=== PATIENT | male | born 1980 | race Caucasian/White ===

== ENCOUNTER 2018-06-02 22:48 | Inpatient (IN) | payer MEDICAID, OTHER ==
[~2018-06-02] VITALS: Ht 188 cm; Wt 119.4 kg
[2018-06-02] MEDS ORDERED: ADENOSINE 6 MG/2 ML (ADENOCARD) VIAL IV ONE ×5 (22:58→23:00)
[2018-06-02] MEDS ORDERED: NS IV 1000 ML 1,000 ML ONE (22:58)
[2018-06-02] MEDS ORDERED: NS IV 1000 ML 1,000 ML IV ONE ×2 (22:59→23:31)
[2018-06-02] MEDS ORDERED: LORazepam INJ 2 MG/ML (ATIVAN) VIAL ONE (22:59)
[2018-06-02] MEDS ORDERED: LORazepam INJ 2 MG/ML (ATIVAN) VIAL IVP ONE ×2 (23:00)
[2018-06-02 23:19] LABS: BASOPHILS % (AUTO) 0 % (0-10); EOSINOPHILS % (AUTO) 0 % (0-10); HEMATOCRIT 48 % (40-54); HEMOGLOBIN 16.7 G/DL (13.3-17.7); LYMPHOCYTES # (AUTO) 2.2 X 10^3 (1.0-4.0); LYMPHOCYTES % (AUTO) 15 % (12-44); MEAN CORPUSCULAR HEMOGLOBIN 29 PG (25-34); MEAN CORPUSCULAR HGB CONC 35 G/DL (32-36); MEAN CORPUSCULAR VOLUME 84 FL (80-99); MEAN PLATELET VOLUME 11.7 FL (7.4-10.4); MONOCYTES % (AUTO) 7 % (0-12); NEUTROPHILS # (AUTO) 11.4 X 10^3 (1.8-7.8); NEUTROPHILS % (AUTO) 78 % (42-75); PLATELET COUNT 283 10^3/uL (130-400); RED BLOOD COUNT 5.78 10^6/uL (4.35-5.85); RED CELL DISTRIBUTION WIDTH 12.7 % (10.0-14.5); WHITE BLOOD COUNT 14.6 10^3/uL (4.3-11.0)
[2018-06-02] MEDS ORDERED: WATER (STERILE) FOR INJECTION 20 ML ONE (23:23)
[2018-06-02] MEDS ORDERED: ZIPRASIDONE 20 MG INJ (GEODON) VIAL IM ONE (23:30)
[2018-06-02] MEDS ORDERED: DILTIAZEM 25 MG/5 ML INJ (CARDIZEM) VIAL IVP ONE (23:30)
[2018-06-02] MEDS ORDERED: DILTIAZEM INJECTION 125 MG in D5W 100 ML IVPB 100 ML IV SCH (23:30)
[2018-06-02 23:39] LABS: ALANINE AMINOTRANSFERASE 92 U/L (0-55); ALBUMIN 4.4 GM/DL (3.2-4.5); ALKALINE PHOSPHATASE 84 U/L (40-136); BILIRUBIN,TOTAL 0.3 MG/DL (0.1-1.0); BUN/CREATININE RATIO 10; CALCIUM 10.2 MG/DL (8.5-10.1); CARBON DIOXIDE 15 MMOL/L (21-32); CHLORIDE 111 MMOL/L (98-107); GFR ESTIMATED > 60; GLUCOSE 226 MG/DL (70-105); MAGNESIUM 2.4 MG/DL (1.8-2.4); POTASSIUM 3.8 MMOL/L (3.6-5.0); SALICYLATE < 5.0 MG/DL (5.0-20.0); SODIUM 142 MMOL/L (135-145)
[2018-06-02 23:45] LABS: ACETAMINOPHEN < 10 UG/ML (10-30); LYMPHOCYTES % (MANUAL) 16 %; MONOCYTES % (MANUAL) 4 %; NEUTROPHILS % (MANUAL) 80 %; RBC MORPH NORMAL
--- OUTSIDE RECORDS SUMMARY | 2018-06-02 23:49 | XMS REPORT | Clinical Summary ---
Author Author [facility] Organization [facility] Address Unknown Phone Unavailable Care Team Providers Care Technical Photographer Name Role Phone Unassigned, None PP Unavailable Allergies No Known Allergies Current Medications Prescription Sig. Disp. Refills Start End Date Status Date FLUoxetine (PROZAC) 40 MG Take 1 capsule (40 mg 30 capsule 0 05/24/20 Active capsuleIndications: total) by mouth daily. 18 Depression Indications: Depression traZODone (DESYREL) 100 Take 1 tablet (100 mg 30 tablet 0 05/23/20 Active MG tabletIndications: total) by mouth at 18 Insomnia bedtime. Indications: Trouble Sleeping lisinopril Take 1 tablet (20 mg 30 tablet 0 05/24/20 Active (PRINIVIL,ZESTRIL) 20 MG total) by mouth daily. 18 tabletIndications: Indications: High Blood Hypertension Pressure Disorder QUEtiapine (SEROQUEL) 50 Take 1 tablet (50 mg 30 tablet 0 05/23/20 Active MG tabletIndications: total) by mouth 2 (two) 18 Schizoaffective disorder times daily as needed (anxiety). Indications: Schizoaffective disorder lisinopril Take 40 mg by mouth 05/23/20 Discontin (PRINIVIL,ZESTRIL) 40 MG daily. 18 ued tablet Mirtazapine (REMERON PO) Take 45 mg by mouth at 05/23/20 Discontin bedtime. 18 ued escitalopram (LEXAPRO) 20 Take 20 mg by mouth 05/23/20 Discontin MG tablet daily. 18 ued haloperidol (HALDOL) 5 MG Take 2 mg by mouth daily. 05/23/20 Discontin tablet 18 ued Active Problems Problem Noted Date Depressive disorder 05/17/2018 Suicide ideation 05/17/2018 Social History Tobacco Use Types Packs/Day Years Used Date Current Every Day Smoker Cigarettes 0.5 Smokeless Tobacco: Never Used Tobacco Cessation: Ready to Quit: No; Counseling Given: No Alcohol Use Drinks/Week oz/Week Comments No last drank 2-3 weeks ago, pints of vodka Sex Assigned at Date Recorded Not on file Last Filed Vital Signs Vital Sign Reading Time Taken Blood Pressure 136/83 05/23/2018 8:31 AM CDT Pulse 104 05/23/2018 8:31 AM CDT Temperature 36.9 C (98.4 F) 05/23/2018 8:30 AM CDT Respiratory Rate 18 05/23/2018 8:30 AM CDT Oxygen Saturation 99% 05/23/2018 8:30 AM CDT Inhaled Oxygen - - Concentration Weight 122.5 kg (270 lb) 05/17/2018 11:10 AM CDT Height 188 cm (6' 2") 05/17/2018 11:10 AM CDT Body Mass Index 34.67 05/17/2018 11:10 AM CDT Plan of Treatment Health Maintenance Due Date Last Done Comments Varicella Vaccines (1 of 1992 2 - 2-dose adolescent series) DTaP,Tdap,and Td Vaccines 1998 (1 - Tdap) Influenza Vaccine (#1) 2018 Implants Implanted Type Area Towel Hemmer Device Expiration Model / Identifier Date Serial / Lot Mesh Mesh Results * TSH (Reflex Free T4 if abnormal) (05/18/2018 11:07 AM) TSH 0.680 0.400 - 4.000 uIU/mL [facility] Specimen Blood Performing Organization Address City/State/Zipcode Phone Number [facility] [address] [place] [address] from Last 3 Months
[2018-06-03] VITALS (16 sets, daily range): BP systolic 110–154; BP diastolic 76–107
[2018-06-03] LABS: TSH (THYROID ANALYZER) 2.52 UIU/ML (0.35-4.94)
--- NOTE | 2018-06-03 01:03 | ED Psychosocial ---
General Chief Complaint: Substance Abuse Stated Complaint: SUBSTANCE ABUSE Nursing Triage Note: Patient advises he used IV meth tonight and has not been feeling well since. Source: patient, EMS Exam Limitations: no limitations History of Present Illness Date Seen by Provider: Jun 02, 2018 Time Seen by Provider: 22:58 Initial Comments This 38-year-old man presents to the emergency room via EMS at the request of [place] police because of acute psychosis. He is noted to be tachycardic with a heart rate around 140 by EMS. He is rather agitated and required some verbal calming by EMS. EMS had a call to this patient earlier in the evening but he declined transfer. This time he is being transferred at police request. Patient appears to be acutely psychotic. He is paranoid that the government officials or other authorities are trying to gain access to his life through his X-box. In fact, he presents to the ER clutching his X-box controller. He admits to using methamphetamines. He also smells of alcohol. When the patient was placed on the monitor he was found to have a heart rate in the 170s. Rhythm appeared to be SVT on the monitor. Patient was diaphoretic, tachycardic and anxious. Allergies and Home Medications Allergies Coded Allergies: NKANo Known Allergies (Verified Allergy, Unknown, 05/01/06) No Known Drug Allergies (Unverified , 06/03/18) Patient Home Medication List Home Medication List Reviewed: Yes Constitutional: see HPI EENTM: no symptoms reported Respiratory: no symptoms reported Cardiovascular: see HPI Gastrointestinal: no symptoms reported Genitourinary: no symptoms reported Musculoskeletal: no symptoms reported Skin: no symptoms reported Psychiatric/Neurological: See HPI Past Aongqlc-Ernpvm-Ozkoqh Hx Patient Social History Alcohol Use: Occasionally Uses Recreational Drug Use: Yes Drug of Choice: meth Smoking Status: Current Everyday Smoker Type Used: Cigarettes 2nd Hand Smoke Exposure: No Recent Foreign Travel: No Contact w/Someone Who Travel: No Recent Infectious Disease Expo: No Recent Hopitalizations: Yes (DEREK FOR DETOX 2 MONTHS AGO, SEVERAL VISITS IN PAST 2 YEARS, TO ) Physical Abuse: No Sexual Abuse: No Past Medical History Surgeries: Yes (wisdom teeth) Respiratory: No Cardiac: Yes Hypertension Neurological: Yes Stroke Reproductive Disorders: No Genitourinary: No Gastrointestinal: No Musculoskeletal: No Endocrine: No HEENT: No Cancer: No Psychosocial: Yes (polysubstance abuse) Nursing Suicide Risk Score: 0 Integumentary: No Blood Disorders: No Physical Exam Vital Signs - First Documented 06/02/18 06/03/18 23:52 01:20 Temp 99.0 Pulse 170 Resp 24 B/P (MAP) 156/101 (119) Pulse Ox 98 O2 Delivery Room Air Capillary Refill : Less Than 3 Seconds Height, Weight, BMI Height: 6'1.00" Weight: 325lbs. oz. 147.005444zp; BMI Method:Estimated General Appearance: WD/WN, moderate distress HEENT: PERRL/EOMI, normal ENT inspection, other (mucous membranes dry) Neck: normal inspection Respiratory: lungs clear, normal breath sounds, no respiratory distress, no accessory muscle use Cardiovascular: no edema, no murmur, tachycardia Gastrointestinal: normal bowel sounds, non tender, soft Extremities: normal inspection, no pedal edema Neurologic/Psychiatric: paper inspector II-XII nml as tested, no motor/sensory deficits, alert, other (somewhat disoriented, agitated, paranoid delusions) Appearance/Memory: disheveled Behavior/Eye Contact: cooperative, good eye contact, increased rate of speech Thoughts/Hallucinations: delusions, flight of ideas, paranoid Skin: normal color, diaphoresis Progress/Results/Core Measures Results/Orders Lab Results Laboratory Tests Test 06/02/18 23:10 Range/Units White Blood Count 14.6 H 4.3-11.0 10^3/uL Red Blood Count 5.78 4.35-5.85 10^6/uL Hemoglobin 16.7 13.3-17.7 G/DL Hematocrit 48 40-54 % Mean Corpuscular Volume 84 80-99 FL Mean Corpuscular Hemoglobin 29 25-34 PG Mean Corpuscular Hemoglobin Concent 35 32-36 G/DL Red Cell Distribution Width 12.7 10.0-14.5 % Platelet Count 283 130-400 10^3/uL Mean Platelet Volume 11.7 H 7.4-10.4 FL Neutrophils (%) (Auto) 78 H 42-75 % Lymphocytes (%) (Auto) 15 12-44 % Monocytes (%) (Auto) 7 0-12 % Eosinophils (%) (Auto) 0 0-10 % Basophils (%) (Auto) 0 0-10 % Neutrophils # (Auto) 11.4 H 1.8-7.8 X 10^3 Lymphocytes # (Auto) 2.2 1.0-4.0 X 10^3 Monocytes # (Auto) 1.0 0.0-1.0 X 10^3 Eosinophils # (Auto) 0.0 0.0-0.3 10^3/uL Basophils # (Auto) 0.0 0.0-0.1 10^3/uL Neutrophils % (Manual) 80 % Lymphocytes % (Manual) 16 % Monocytes % (Manual) 4 % Blood Morphology Comment NORMAL Sodium Level 142 135-145 MMOL/L Potassium Level 3.8 3.6-5.0 MMOL/L Chloride Level 111 H 98-107 MMOL/L Carbon Dioxide Level 15 L 21-32 MMOL/L Anion Gap 16 H 5-14 MMOL/L Blood Urea Nitrogen 10 7-18 MG/DL Creatinine 1.00 0.60-1.30 MG/DL Estimat Glomerular Filtration Rate > 60 BUN/Creatinine Ratio 10 Glucose Level 226 H 70-105 MG/DL Calcium Level 10.2 H 8.5-10.1 MG/DL Magnesium Level 2.4 1.8-2.4 MG/DL Total Bilirubin 0.3 0.1-1.0 MG/DL Aspartate Amino Transf (AST/SGOT) 70 H 5-34 U/L Alanine Aminotransferase (ALT/SGPT) 92 H 0-55 U/L Alkaline Phosphatase 84 40-136 U/L Troponin I < 0.30 <0.30 NG/ML Total Protein 8.0 6.4-8.2 GM/DL Albumin 4.4 3.2-4.5 GM/DL TSH Sargent Testing 2.52 0.35-4.94 UIU/ML Salicylates Level < 5.0 L 5.0-20.0 MG/DL Acetaminophen Level < 10 L 10-30 UG/ML Serum Alcohol 202 H <10 MG/DL My Orders Orders - THOMAS PAPPAS MD Lorazepam Injection (Ativan Injection) (06/02/18 23:00) Adenosine Injection (Adenocard Injection (06/02/18 23:00) Adenosine Injection (Adenocard Injection (06/02/18 23:00) Adenosine Injection (Adenocard Injection (06/02/18 23:00) Adenosine Injection (Adenocard Injection (06/02/18 23:00) Lorazepam Injection (Ativan Injection) (06/02/18 23:00) Acetaminophen (06/02/18 22:59) Alcohol (06/02/18 22:59) Cbc With Automated Diff (06/02/18 22:59) Comprehensive Metabolic Panel (06/02/18 22:59) Drug Screen Stat (Urine) (06/02/18 22:59) Magnesium (06/02/18 22:59) Salicylate (06/02/18 22:59) Thyroid Analyzer (06/02/18 22:59) Troponin I (06/02/18 22:59) Ua Culture If Indicated (06/02/18 22:59) Saline Lock/Iv-Start (06/02/18 22:59) Saline Lock/Iv-Start (06/02/18 22:59) Ns Iv 1000 Ml (Sodium Chloride 0.9%) (06/02/18 22:59) Ns Iv 1000 Ml (Sodium Chloride 0.9%) (06/02/18 22:58) Adenosine Injection (Adenocard Injection (06/02/18 22:58) Lorazepam Injection (Ativan Injection) (06/02/18 22:59) Ziprasidone Injection (Geodon Injection) (06/02/18 23:30) D5w 100 Ml Ivpb (De... W/Diltiazem Injec (06/02/18 23:30) Diltiazem Injection (Cardizem Injection) (06/02/18 23:30) Manual Differential (06/02/18 23:10) Water (Sterile) For Injection (Sterile W (06/02/18 23:23) Saline Lock/Iv-Start (06/02/18 23:31) Ns Iv 1000 Ml (Sodium Chloride 0.9%) (06/02/18 23:31) Chest 1 View, Ap/Pa Only (06/03/18 00:00) Ekg Tracing (06/03/18 00:10) Ekg Tracing (06/03/18 01:40) Medications Given in ED Current Medications Medications Dose Ordered Sig/Travis Route Start Time Stop Time Status Last Admin Dose Admin Adenosine 6 mg ONCE ONCE IV 06/02/18 23:00 06/02/18 23:02 DC 06/02/18 23:40 6 MG Adenosine 6 mg STK-MED ONCE IV 06/02/18 22:58 06/02/18 23:00 DC 06/02/18 23:43 6 MG Adenosine 12 mg ONCE ONCE IV 06/02/18 23:00 06/02/18 23:02 DC 06/02/18 23:40 12 MG Diltiazem HCl 10 mg ONCE ONCE IVP 06/02/18 23:30 06/02/18 23:31 DC 06/02/18 23:39 10 MG Lorazepam 2 mg ONCE ONCE IVP 06/02/18 23:00 06/02/18 23:02 DC 06/02/18 23:40 2 MG Sodium Chloride 1,000 ml @ 0 mls/hr Q0M ONCE IV 06/02/18 22:59 06/02/18 23:02 DC 06/02/18 23:41 0 MLS/HR Sodium Chloride 1,000 ml @ 0 mls/hr Q0M ONCE IV 06/02/18 23:31 06/02/18 23:32 DC 06/02/18 23:39 0 MLS/HR Sterile Water 20 ml @ ud STK-MED ONCE .ROUTE 06/02/18 23:23 06/02/18 23:26 DC 06/02/18 23:40 20 MLS/HR Ziprasidone 10 mg ONCE ONCE IM 06/02/18 23:30 06/02/18 23:31 DC 06/02/18 23:40 10 MG Vital Signs/I&O 06/02/18 06/03/18 06/03/18 23:52 01:20 01:23 Temp 99.0 Pulse 170 122 121 Resp 24 10 B/P (MAP) 156/101 (119) 124/79 (94) Pulse Ox 98 95 O2 Delivery Room Air Room Air Blood Pressure Mean: 119 Progress Progress Note : Progress Note Patient was rather agitated which was concerning to ER staff. [place] PD was scalded to be on standby. We were able to establish IV access. Ativan 2 mg was administered. EKG was suggestive of SVT, although in the automated read of the EKG reported sinus tachycardia. Adenosine 6 mg was given resulting in a brief pause and conversion to sinus rhythm in the 60s. This lasted for several seconds but promptly returned to a narrow complex tachycardia. A 12 mg dose of adenosine was then given which had no effect on the rhythm. Blood pressure remained hypertensive to normal. Patient remained alert. Cardizem bolus and drip was chosen as the next line of therapy. Heart rate gradually decreased to the 130s and 140s. As rate slowed an apparent sinus tachycardia emerged. Patient received 2 L of IV normal saline while in the ER. Patient also received Geodon 10 mg IM which helped calm his psychosis. EKG #1: EKG Time: 22:59 Rate: 162 Rhythm: SVT Intervals: Normal Comment Narrow complex tachycardia possibly sinus tachycardia but likely SVT. No acute ST elevation or depression. Prolonged QTC of 539. EKG #2: EKG Time: 00:18 Rate: 131 Rhythm: S.Tach Comment Sinus tachycardia with no ST elevation or depression. Prolonged QTC has now corrected. Diagnostic Imaging Diagonstic Imaging: Xray Plain Films/CT/US/NM/MRI: chest Comments Chest x-ray viewed by me. Report not yet available. No acute abnormalities appreciated. Departure Communication (Admissions) Time/Spoke to Admitting Phy: 00:40 Dr. Camacho Time/Spoke to Consulting Phy: 00:45 Dr. Bustamante Impression Primary Impression: Tachycardia Additional Impressions: Acute psychosis Methamphetamine abuse Alcohol intoxication Qualified Codes: F10.921 - Alcohol use, unspecified with intoxication delirium Leukocytosis Qualified Codes: D72.829 - Elevated white blood cell count, unspecified Disposition: ADMITTED INPATIENT Condition: Improved Admissions Decision to Admit Reason: Admit from ER (General) Decision to Admit/Date: Jun 02, 2018 Time/Decision to Admit Time: 23:00 Departure-Patient Inst. Referrals: ZA CAMACHO DO (PCP) Primary Care Physician Patient Instructions: ALCOHOL AND SUBSTANCE ABUSE THOMAS PAPPAS MD Jun 03, 2018 01:02
--- OUTSIDE RECORDS SUMMARY | 2018-06-03 01:06 | XMS REPORT | Clinical Summary ---
Author Author [facility] Organization [facility] Address Unknown Phone Unavailable Care Team Providers Care Channel Marketing Coordinator Name Role Phone Unassigned, None PP Unavailable [...] Vaccine (#1) 2018 Implants Implanted Type Area Sewer Separation Designer Device Expiration Model / Identifier Date Serial / Lot Mesh Mesh Results * TSH (Reflex Free T4 if abnormal) (05/18/2018 11:07 AM) TSH 0.680 0.400 - 4.000 uIU/mL [facility] Specimen Blood Performing Organization Address City/State/Zipcode Phone Number [facility] [address] [place] [address] from Last 3 Months
[2018-06-03] MEDS ORDERED: LORazepam INJ 2 MG/ML (ATIVAN) VIAL ONE (01:48)
[2018-06-03] MEDS ORDERED: NICOTINE 21 MG (NICODERM) PATCH ONE (02:18)
[2018-06-03] MEDS: NS IV 1000 ML 1,000 ML IV SCH ×2 (02:26→07:46)
[2018-06-03] MEDS ORDERED: LORazepam INJ 2 MG/ML (ATIVAN) VIAL IV PRN (02:30)
[2018-06-03] MEDS ORDERED: ONDANSETRON 4 MG/2 ML (SDV) Z0FRAN IV PRN (02:30)
[2018-06-03] MEDS ORDERED: ZIPRASIDONE 20 MG INJ (GEODON) VIAL IM PRN (02:30)
[2018-06-03 03:16] LABS: BASOPHILS % (AUTO) 0 % (0-10); EOSINOPHILS % (AUTO) 0 % (0-10); HEMATOCRIT 41 % (40-54); HEMOGLOBIN 14.5 G/DL (13.3-17.7); LYMPHOCYTES # (AUTO) 2.4 X 10^3 (1.0-4.0); LYMPHOCYTES % (AUTO) 19 % (12-44); MEAN CORPUSCULAR HEMOGLOBIN 30 PG (25-34); MEAN CORPUSCULAR HGB CONC 35 G/DL (32-36); MEAN CORPUSCULAR VOLUME 85 FL (80-99); MEAN PLATELET VOLUME 11.6 FL (7.4-10.4); MONOCYTES % (AUTO) 8 % (0-12); NEUTROPHILS # (AUTO) 9.1 X 10^3 (1.8-7.8); NEUTROPHILS % (AUTO) 72 % (42-75); PLATELET COUNT 214 10^3/uL (130-400); RED BLOOD COUNT 4.85 10^6/uL (4.35-5.85); RED CELL DISTRIBUTION WIDTH 12.4 % (10.0-14.5); WHITE BLOOD COUNT 12.6 10^3/uL (4.3-11.0)
[2018-06-03 03:31] LABS: BUN/CREATININE RATIO 11; CALCIUM 8.5 MG/DL (8.5-10.1); CARBON DIOXIDE 16 MMOL/L (21-32); CHLORIDE 115 MMOL/L (98-107); CREATININE SERUM 0.73 MG/DL (0.60-1.30); GFR ESTIMATED > 60; GLUCOSE 113 MG/DL (70-105); MAGNESIUM 1.8 MG/DL (1.8-2.4); PHOSPHORUS 3.2 MG/DL (2.3-4.7); POTASSIUM 3.7 MMOL/L (3.6-5.0); SODIUM 144 MMOL/L (135-145)
[2018-06-03 04:30] LABS: BILIRUBIN,URINE NEGATIVE (NEGATIVE); CLARITY,URINE CLEAR; COLOR,URINE YELLOW; GLUCOSE, URINE (UA) NEGATIVE (NEGATIVE); KETONES,URINE NEGATIVE (NEGATIVE); LEUKOCYTE ESTERASE ,URINE NEGATIVE (NEGATIVE); NITRITE,URINE NEGATIVE (NEGATIVE); PH,URINE 6.5 (5-9); PROTEIN,URINE NEGATIVE (NEGATIVE); UROBILINOGEN,URINE NORMAL (NORMAL)
[2018-06-03 04:40] LABS: BACTERIA,URINE NEGATIVE /HPF
[2018-06-03 05:07] LABS: AMPHETAMINE SCREEN, URINE POSITIVE (NEGATIVE); BARBITURATE SCREEN URINE NEGATIVE (NEGATIVE); BENZODIAZEPINES SCREEN URINE POSITIVE (NEGATIVE); CANNABINOID SCREEN, URINE POSITIVE (NEGATIVE); COCAINE SCREEN URINE NEGATIVE (NEGATIVE); METHADONE STAT NEGATIVE (NEGATIVE); METHAMPHETAMINE SCREEN URINE S POSITIVE (NEGATIVE); OPIATE SCREEN URINE NEGATIVE (NEGATIVE); OXYCODONE STAT NEGATIVE (NEGATIVE); PROPOXYPHENE STAT NEGATIVE (NEGATIVE); TRICYCLIC ANTIDEPRESSANTS SCRE NEGATIVE (NEGATIVE)
[2018-06-03] MEDS ORDERED: MAGNESIUM 1 GM/100 ML IVPB 100 ML IV SCH (06:00)
[2018-06-03] MEDS ORDERED: POTASSIUM CL 10MEQ/50ML IVPB 50 ML IV SCH (06:00)
[2018-06-03] MEDS ORDERED: KCL 20 MEQ TAB (K-DUR) PO SCH (06:00)
--- NOTE | 2018-06-03 07:10 | Diagnostic Imaging Report ---
EXAMINATION: Chest radiograph, portable AP view. DATE: June 03, 2018 at 0008 hours. INDICATION: 38-year-old male, chest pain. COMPARISON: None. FINDINGS: Heart size and mediastinal contours are unremarkable. There is no identified pneumothorax. There is no large pleural effusion. There is no identified focal airspace consolidation. There is widening of the right acromioclavicular joint which potentially could relate to sequela of acromioclavicular joint separation injury. IMPRESSION: 1. No identified acute cardiopulmonary abnormality. 2. Widening of the right acromioclavicular joint which may potentially reflect sequela of right acromioclavicular joint separation injury. Dictated by: Dictated on workstation # [id number]
[2018-06-03] MEDS ORDERED: D5W 100 ML IVPB 100 ML IV ONE (07:33)
[2018-06-03] MEDS ORDERED: DILTIAZEM 125 MG/25 ML IV (CARDIZEM) IV ONE (07:35)
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
[2018-06-03] MEDS ORDERED: NICOTINE 21 MG (NICODERM) PATCH TD SCH (09:00)
[2018-06-03] MEDS ORDERED: IBUP-30 PO (09:15)
[2018-06-03] MEDS ORDERED: TRAZ-190 PO (09:15)
[2018-06-03] MEDS ORDERED: FLUO40CA12 PO (09:15)
[2018-06-03] MEDS ORDERED: LISI-552 PO (09:15)
[2018-06-03] MEDS ORDERED: QUET50TA PO (09:15)
--- NOTE | 2018-06-03 09:49 | Consultation-Cardiology ---
HPI-Cardiology Cardiology Consultation: Date of Consultation 06/03/18 Date of Admission Attending Physician Kendrick Hankins DO Admitting Physician Kendrick Hankins DO Consulting Physician Artur BUSTAMANTE MD HPI: Time Seen by Provider: 09:50 Chief Complaint: SVT. This is a 38-year-old gentleman who presented to the ER with acute psychosis. He was noted to be tachycardic with elevated heart rate. He was found to be in SVT. He used methamphetamines and was intoxicated. He was acutely psychotic. Review of Systems-Cardiology Review of Systems Constitutional: As described under HPI; No As described under HPI, No no symptoms reported, No chills, No fever, No lightheadedness Eyes: No As described under HPI, No no symptoms reported, No blindness, No blurred vision, No contact lenses, No drainage, No decreased acuity, No foreign body sensation, No pain, No vision change Ears/Nose/Throat: No As described under HPI, No no symptoms reported, No chronic hearing loss, No ear discharge, No ear pain, No nasal drainage, No ulcerations Respiratory: No no symptoms reported; As described under HPI; No As described under HPI, No cough, No orthopnea, No shortness of breath, No SOB with excertion Cardiovascular: No no symptoms reported; As described under HPI; No As described under HPI, No chest pain, No edema, No irregular heart rate, No lightheadedness; palpitations Gastrointestinal: No no symptoms reported, No As described under HPI, No abdomen distended, No abdominal pain, No blood streaked bowels, No constipation , No diarrhea, No nausea, No vomiting, No stool coloration changes Genitourinary: No As described under HPI, No burning, No dysuria, No discharge , No frequency, No flank pain, No hematuria, No urgency Skin: No rash, No skin related problems, No ulcerations Psychiatric/Neurological: As described under HPI; No anxiety, No depression, No seizure, No focal weakness, No syncope Hematologic: No bleeding abnormalities [id number] Hx Patient Social History Employed/Student: unemployed Alcohol Use: Occasionally Uses Recreational Drug Use: Yes Drug of Choice: IV meth Smoking Status: Current Everyday Smoker Type Used: Cigarettes 2nd Hand Smoke Exposure: No Recent Foreign Travel: No Recent Infectious Disease Expo: No Physical Abuse Screen: No (POSSIBLY) Sexual Abuse: No Past Medical History PMH As described under Assessment. Allergies and Home Medications Allergies Coded Allergies: NKANo Known Allergies (Verified Allergy, Unknown, 05/01/06) No Known Drug Allergies (Unverified , 06/03/18) Home Medications Fluoxetine HCl 40 Mg Capsule, 40 MG PO DAILY, (Reported) Ibuprofen 200 Mg Tablet, 800 MG PO TID PRN for PAIN-MILD, (Reported) Lisinopril 20 Mg Tablet, 20 MG PO DAILY, (Reported) Quetiapine Fumarate 50 Mg Tablet, 50 MG PO HS, (Reported) Trazodone HCl 100 Mg Tablet, 100 MG PO HS, (Reported) Patient Home Medication List Home Medication List Reviewed: Yes Physical Exam-Cardiology Physical Exam Vital Signs/I&O 06/03/18 06/03/18 06/03/18 06/03/18 11:44 11:45 12:00 13:00 Temp 98.4 Pulse 79 81 Resp 8 B/P (MAP) 149/101 (117) Pulse Ox 99 99 O2 Delivery Room Air Room Air Room Air 06/03/18 06/03/18 06/03/18 06/03/18 13:00 14:00 15:00 16:15 Pulse 76 74 75 75 Resp 20 15 14 14 B/P (MAP) 154/107 (123) 138/93 (108) 147/107 (120) 147/107 Pulse Ox 100 100 96 96 O2 Delivery Room Air Room Air Room Air Room Air Capillary Refill : Less Than 3 Seconds Constitutional: appears stated age; No apparent distress; well-developed, well- nourished HEENT: PERRL; No discharge; hearing is well preserved, oral hygience is good; No ulceration, No xanthelasmas are seen Neck: No carotid bruit; carotid pulses are 2 + bilaterally Respiratory: chest is bilaterally symmetric, lungs clear to auscultation Cardiovascular: regular rate-rhythm, S1 and S2 Gastrointestinal: No tender, No soft, No round, No distended, No pulsatile mass , No organomegaly, No guarding, No rebound, No tenderness, No hernia, No mass, No audible bowel sounds, No abnormal bowel sounds, No abdominal bruits, No spleenomegaly, No other Rectal: deferred Extremities: No normal range of motion, No non-tender, No normal inspection, No pedal edema, No calf tenderness, No normal capillary refill, No pelvis stable , No calf tenderness, No inflammation, No pedal edema, No slow capillary refill , No swelling, No other, No abrasion, No clubbing, No cyanosis, No ecchymosis, No laceration, No no lower extremity edema bilateral, No significant edema, No tenderness, No wound Neurologic/Psychiatric: no motor/sensory deficits, alert, normal mood/affect, oriented x 3, power is 5/5 both on sides Skin: No normal color, No warm/dry, No cyanosis, No cool, No diaphoresis, No damp, No ecchymosis, No jaundice, No mottled, No pallor, No rash, No tattoos/ piercings, No ulcerations, No rash on exposed areas, No ulcerations on exposed areas, No other Data Review Labs Laboratory Tests 06/03/18 03:00: White Blood Count 12.6H, Red Blood Count 4.85, Hemoglobin 14.5, Hematocrit 41, Mean Corpuscular Volume 85, Mean Corpuscular Hemoglobin 30, Mean Corpuscular Hemoglobin Concent 35, Red Cell Distribution Width 12.4, Platelet Count 214, Mean Platelet Volume 11.6H, Neutrophils (%) (Auto) 72, Lymphocytes (%) (Auto) 19 , Monocytes (%) (Auto) 8, Eosinophils (%) (Auto) 0, Basophils (%) (Auto) 0, Neutrophils # (Auto) 9.1H, Lymphocytes # (Auto) 2.4, Monocytes # (Auto) 1.0, Eosinophils # (Auto) 0.0, Basophils # (Auto) 0.0, Sodium Level 144, Potassium Level 3.7, Chloride Level 115H, Carbon Dioxide Level 16L, Anion Gap 13, Blood Urea Nitrogen 8, Creatinine 0.73, Estimat Glomerular Filtration Rate > 60, BUN/ Creatinine Ratio 11, Glucose Level 113H, Calcium Level 8.5, Phosphorus Level 3.2 , Magnesium Level 1.8 06/03/18 04:25: Urine Color YELLOW, Urine Clarity CLEAR, Urine pH 6.5, Urine Specific [place] 1.020, Urine Protein NEGATIVE, Urine Glucose (UA) NEGATIVE, Urine Ketones NEGATIVE, Urine Nitrite NEGATIVE, Urine Bilirubin NEGATIVE, Urine Urobilinogen NORMAL, Urine Leukocyte Esterase NEGATIVE, Urine RBC (Auto) NEGATIVE, Urine RBC NONE, Urine WBC NONE, Urine Crystals NONE, Urine Bacteria NEGATIVE, Urine Casts NONE, Urine Mucus SMALLH, Urine Culture Indicated NO, Urine Opiates Screen NEGATIVE, Urine Oxycodone Screen NEGATIVE, Urine Methadone Screen NEGATIVE, Urine Propoxyphene Screen NEGATIVE, Urine Barbiturates Screen NEGATIVE, Ur Tricyclic Antidepressants Screen NEGATIVE, Urine Phencyclidine Screen NEGATIVE, Urine Amphetamines Screen POSITIVEH, Urine Methamphetamines Screen POSITIVEH, Urine Benzodiazepines Screen POSITIVEH, Urine Cocaine Screen NEGATIVE, Urine Cannabinoids Screen POSITIVEH ECG Impression ECG Initial ECG Rhythm: SVT A/P-Cardiology Assessment/Admission Diagnosis SVT, Acute psychosis, Drug abuse, Hypertension Plan PSVT: Will likely require EP study and ablation in the near future. EP follow- up as an outpatient. Discharge on Cardizem. Hypertension: Discharge on carvedilol. Acute psychosis and drug abuse: Psychiatry consultation is recommended. Thank you for your consultation. Please call me if you have any questions. Cornelius Bustamante MD, FACP, FACC, FSCAI, FHRS, CCDS Interventional Cardiology Cardiac Electrophysiology Vascular Medicine and Endovascular Interventions Clinical Quality Measures DVT/VTE Risk/Contraindication: Risk Factor Score Per Nursin RFS Level Per Nursing on Admit: 2=Moderate Contraindications-Pharm: Other *list below* Artur BUSTAMANTE MD Jun 03, 2018 09:49
[2018-06-03] MEDS ORDERED: CARVEDILOL 6.25 MG (COREG) TAB PO NR ×2 (10:11→20:00)
[2018-06-03] MEDS ORDERED: DILTIAZEM 120 MG (CARDIZEM CD) CAP PO SCH (12:15)
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
== END 2018-06-03 16:15 | disposition left against medical advice (07) | DRG 894 ==
LOC: EDUNIT# 22:48 → ER 22:49 → ICU 06-03 00:53
PROVIDERS: ADMIT Family Medicine; ATTEND Family Medicine
DX: F15.959 Other stimulant use, unspecified with stimulant-induced psychotic disorder, unspecified (principal); I47.1 Supraventricular tachycardia; F12.959 Cannabis use, unspecified with psychotic disorder, unspecified; F10.921 Alcohol use, unspecified with intoxication delirium; F13.159 Sedative, hypnotic or anxiolytic abuse with sedative, hypnotic or anxiolytic-induced psychotic disorder, unspecified; I10 Essential (primary) hypertension; F17.210 Nicotine dependence, cigarettes, uncomplicated; D72.829 Elevated white blood cell count, unspecified
CPT/HCPCS: 36415; 71045; 80048; 80053; 80306; 80320; 80329; 81000; 83735; 84100; 84443; 84484; 85007; 85025; 85027; 93005; 96365; 96366; 96372; 96375

== ENCOUNTER 2019-06-29 17:51 | Observation (INO) | payer SELFPAY, OTHER | END 2019-07-01 19:40 | LOC: 4TH 07-01 09:22 → ER 17:51 → ICU 19:05 ==

== ENCOUNTER 2021-05-08 08:42 | Emergency (ER) | payer SELFPAY ==
[~2021-05-08] VITALS: Ht 187 cm; Wt 99.7 kg
[~2021-05-08 08:42] MED LIST: BENZ0.5T42 PO; BUPR300T43 PO; FLUO40CA12 PO; IBUP-30 PO; LISI20TA26 PO; MIRT-94 PO; PALI546S IM; QUET100T PO; QUET200T PO; QUET50TA PO; TRAZ-227 PO
[2021-05-08] MEDS ORDERED: ALPRAZolam 0.25 MG (XANAX) TAB PO ONE (09:00)
--- NOTE | 2021-05-08 09:03 | ED Psychosocial ---
General Chief Complaint: Psych/Social Disorder Stated Complaint: STRESS/ ANXIETY Source: patient, EMS Exam Limitations: no limitations History of Present Illness Date Seen by Provider: May 08, 2021 Time Seen by Provider: 08:45 Initial Comments Patient is a 41-year-old male with a history of mental health disease who presents to the emergency department by EMS from work with a chief complaint of "talking out of his head". Reportedly coworkers were concerned when the patient was found mumbling to himself and not acting normally. Patient himself states no complaints at this time other than some pain in his right shoulder and feeling anxious. He states that when he got up this morning he "felt weird". Patient has a history of schizophrenia and is medicated and has a mental health professional through [facility] (stefanie). He is alert and oriented. He has no complaints of recent illness. He states he has a history of drug abuse in the past and continues to use K2 and marijuana. No recent methamphetamine abuse that he admits to. He smokes cigarettes and occasionally drinks alcohol on the weekends. Patient has no suicidal thoughts or homicidal thoughts. He states that he is hearing crickets chirping and frogs chirping. He is not having any visual hallucinations. He states he has not taken his anxiety medications this morning and is asking for some Xanax. He does state that he has a headache on either muslim about every 45 minutes this morning. He seems calm and cooperative and in no acute distress. All other review of systems reviewed and negative except as stated above. Timing/Duration: just prior to arrival Severity: mild Associated Symptoms: anxiety Allergies and Home Medications Allergies Coded Allergies: NKANo Known Allergies (Verified Allergy, Unknown, 05/01/06) No Known Drug Allergies (Unverified , 06/03/18) Home Medications Benztropine Mesylate 0.5 Mg Tablet, 0.5 MG PO QID PRN for SPASMS, (Reported) Bupropion HCl 300 Mg Tab.er.24h, 300 MG PO DAILY, (Reported) Mirtazapine 30 Mg Tablet, 30 MG PO HS, (Reported) Paliperidone Palmitate 546 Mg/1.75 Ml Syringe, 546 MG IM every 12 weeks, (Reported) Quetiapine Fumarate 100 Mg Tablet, 50 MG PO TID PRN for ANXIETY, (Reported) Quetiapine Fumarate 200 Mg Tablet, 100 MG PO HS, (Reported) Patient Home Medication List Home Medication List Reviewed: Yes Review of Systems Constitutional: see HPI EENTM: no symptoms reported Respiratory: no symptoms reported Cardiovascular: no symptoms reported Gastrointestinal: other ("I think I am getting an ulcer" states that he chews Tums "all the time".) Genitourinary: no symptoms reported Musculoskeletal: no symptoms reported Psychiatric/Neurological: Anxiety All Other Systems Reviewed Negative Unless Noted: Yes Past Zdhaqcl-Dmygvg-Xebzqe Hx Patient Social History Alcohol Use: Occasionally Uses Drug of Choice: IV meth Smoking Status: Current Everyday Smoker Type Used: Cigarettes 2nd Hand Smoke Exposure: No Recent Hopitalizations: No Seasonal Allergies Seasonal Allergies: No Past Medical History Surgeries: Yes (ORAL SURGERY) Appendectomy, Eye Surgery Respiratory: No Cardiac: No Hypertension Neurological: Yes Stroke Reproductive Disorders: No Genitourinary: No Gastrointestinal: No Musculoskeletal: No Endocrine: No HEENT: No Cancer: No Psychosocial: Yes (polysubstance abuse) Anxiety, Suicide Attempts, Schizophrenia, Depression Integumentary: No Blood Disorders: No Physical Exam Vital Signs - First Documented 05/08/21 08:44 Temp 36.3 Pulse 117 Resp 20 B/P (MAP) 167/116 (133) Pulse Ox 98 Capillary Refill : Height, Weight, BMI Height: 6'2.00" Weight: 301lbs. 3.0oz. [id number]; 33.8 BMI Method:Estimated General Appearance: WD/WN, no apparent distress HEENT: PERRL/EOMI Neck: normal inspection Respiratory: lungs clear, normal breath sounds, no respiratory distress, no accessory muscle use Cardiovascular: regular rate, rhythm, no edema Gastrointestinal: normal bowel sounds, non tender, soft Extremities: normal range of motion, non-tender, normal inspection, no pedal edema Neurologic/Psychiatric: no motor/sensory deficits, alert, normal mood/affect, oriented x 3 Appearance/Memory: appropriate appearance, appropriate insight Behavior/Eye Contact: cooperative, good eye contact, normal speech Thoughts/Hallucinations: normal thought pattern, auditory hallucinations Skin: normal color, warm/dry Progress/Results/Core Measures Results/Orders My Orders Progress Progress Note : Progress Note Nursing staff advised that the patient wanted to leave. His girlfriend had been here and states that he acts like this when he takes too much Xanax. Patient also admits to methamphetamine use yesterday to his nurse. Although he stated to me, he had not used in 4 months. Patient was allowed to leave as he demonstrated and articulated no SI or homicidal ideations. I had no reasons to suspect that the patient was of immediate harm to himself or others. Patient was randomly walking around the department and into and out of rooms pill for him through cabinets. I did not see a reason that the patient met criteria for involuntary hold. Patient was allowed to leave AGAINST MEDICAL ADVICE. Departure Impression Primary Impression: Psychosis Disposition: 07 AGAINST MEDICAL ADVICE Condition: Stable Departure-Patient Inst. Referrals: ZA CAMACHO DO (PCP/Family) Primary Care Physician CAMILA SAL MD May 08, 2021 09:03
[2021-05-08 09:11] LABS: BASOPHILS # (AUTO) 0.1 10^3/uL (0.0-0.1); BASOPHILS % (AUTO) 1 % (0-10); EOSINOPHILS # (AUTO) 0.1 10^3/uL (0.0-0.3); EOSINOPHILS % (AUTO) 1 % (0-10); HEMATOCRIT 45 % (40-54); HEMOGLOBIN 14.6 g/dL (13.3-17.7); LYMPHOCYTES % (AUTO) 23 % (12-44); MEAN CORPUSCULAR HEMOGLOBIN 28 pg (25-34); MEAN CORPUSCULAR HGB CONC 33 g/dL (32-36); MEAN CORPUSCULAR VOLUME 87 fL (80-99); MEAN PLATELET VOLUME 11.9 fL (9.0-12.2); MONOCYTES % (AUTO) 11 % (0-12); NEUTROPHILS # (AUTO) 5.8 10^3/uL (1.8-7.8); NEUTROPHILS % (AUTO) 65 % (42-75); PLATELET COUNT 219 10^3/uL (130-400)
[2021-05-08 09:25] LABS: ALBUMIN 4.3 GM/DL (3.2-4.5); CHLORIDE 104 MMOL/L (98-107); SODIUM 141 MMOL/L (135-145)
[2021-05-08 09:26] LABS: CALCIUM 10.7 MG/DL (8.5-10.1)
[2021-05-08 09:27] LABS: GLUCOSE 113 MG/DL (70-105)
[2021-05-08 09:28] LABS: TOTAL PROTEIN 7.6 GM/DL (6.4-8.2)
[2021-05-08 09:29] LABS: BILIRUBIN,TOTAL 0.4 MG/DL (0.1-1.0); CARBON DIOXIDE 24 MMOL/L (21-32)
[2021-05-08 09:31] LABS: ALKALINE PHOSPHATASE 63 U/L (40-136); CREATININE SERUM 1.13 MG/DL (0.60-1.30); GFR ESTIMATED > 60
[2021-05-08 09:33] LABS: BUN/CREATININE RATIO 15
[2021-05-08 09:34] LABS: ALANINE AMINOTRANSFERASE 45 U/L (0-55); SALICYLATE < 5.0 MG/DL (5.0-20.0)
[2021-05-08 09:36] LABS: ACETAMINOPHEN < 10 UG/ML (10-30)
[2021-05-08 11:14] VITALS: BP 150/98
== END 2021-05-08 11:13 | disposition home or self-care (01) ==
LOC: EDUNIT# 08:42 → ER 08:44
DX: M25.511 Pain in right shoulder (principal); F20.9 Schizophrenia, unspecified; I10 Essential (primary) hypertension; F32.9 Major depressive disorder, single episode, unspecified; F17.210 Nicotine dependence, cigarettes, uncomplicated; Z86.73 Personal history of transient ischemic attack (TIA), and cerebral infarction without residual deficits; Z79.899 Other long term (current) drug therapy
CPT/HCPCS: 80053; 85025; G0480 ×3; 36415; 80320; 80329; 93005

== ENCOUNTER 2021-10-31 20:10 | Emergency (ER) | payer SELFPAY ==
[~2021-10-31] VITALS: Ht 187.9 cm; Wt 117.5 kg
[2021-10-31] MEDS ORDERED: CEPHALEXIN 250 MG (KEFLEX) CAP PO STA (20:48)
--- NOTE | 2021-10-31 20:57 | ED Integumentary General ---
General Chief Complaint: Skin/Wound Problems Stated Complaint: L ARM SWELLING / PAIN Nursing Triage Note: PT AMB TO RM 6 WITH COMPLAINT OF ARM REDNESS AND SWELLING TO LEFT ARM. STATES HE SHOT UP METH 3-4 DAYS IN LEFT AC. STATES HE DID NOT HAVE A MISS. PT EATING CHEETOS IN WAITING ROOM WHEN CALLED BACK INTO ROOM. Source: patient Exam Limitations: no limitations History of Present Illness Date Seen by Provider: Oct 31, 2021 Time Seen by Provider: 20:32 Initial Comments Patient is a 41-year-old male who presents to the emergency room with a chief complaint of left forearm redness, and a "knot" to the medial aspect of his antecubital space. Patient states that he last injected IV methamphetamine 3 or 4 days ago. He had not noticed any problems with that until today after work when he took off his longsleeve shirt he had some discomfort and noticed the swelling and redness. He denies any known fevers. No shortness of breath or cough. He has only been using IV meth for about 8 months. Denies any chest pain. Has a history of hypertension. Has not taken anything for the pain. I had a long discussion with him about seeking treatment for his meth addiction. He is interested in this. I will give him some resources in [place] as he is not interested in [place] because he grew up there. All other review of systems reviewed and negative except as stated Timing/Duration: other (today) Possible Cause: other (IV drug use) Associated Symptoms: other (redness and pain left forearm) Allergies and Home Medications Allergies Coded Allergies: NKANo Known Allergies (Verified Allergy, Unknown, 05/01/06) No Known Drug Allergies (Unverified , 06/03/18) Patient Home Medication List Home Medication List Reviewed: Yes Benztropine Mesylate (Benztropine Mesylate) 0.5 Mg Tablet, 0.5 MG PO QID PRN for SPASMS, (Reported) Entered as Reported by: ROBERTA HOFFMAN on 06/30/19 110 Bupropion HCl (Wellbutrin Xl) 300 Mg Tab.er.24h, 300 MG PO DAILY, (Reported) Entered as Reported by: ROBERTA HOFFMAN on 06/30/19 110 Mirtazapine (Remeron) 30 Mg Tablet, 30 MG PO HS, (Reported) Entered as Reported by: ROBETRA HOFFMAN on 06/30/191108 Paliperidone Palmitate (Invega Trinza) 546 Mg/1.75 Ml Syringe, 546 MG IM every 12 weeks, (Reported) Entered as Reported by: ROBERTA HOFFMAN on 06/30/191108 Quetiapine Fumarate (Seroquel) 100 Mg Tablet, 50 MG PO TID PRN for ANXIETY, (Reported) Entered as Reported by: ROBERTA HOFFMAN on 06/30/191108 Quetiapine Fumarate (Seroquel) 200 Mg Tablet, 100 MG PO HS, (Reported) Entered as Reported by: ROBERTA HOFFMAN on 06/30/191108 Review of Systems Review of Systems Constitutional: see HPI EENTM: no symptoms reported Respiratory: no symptoms reported Cardiovascular: no symptoms reported Gastrointestinal: no symptoms reported Musculoskeletal: joint pain (left elbow) Skin: rash Psychiatric/Neurological: No Symptoms Reported All Other Systems Reviewed Negative Unless Noted: Yes Past Owejxvl-Kqwfjv-Pppckc Hx Patient Social History Tobacco Use?: Yes Tobacco type used: Cigarettes Smoking Status: Current Everyday Smoker Use of E-Cig and/or Vaping dev: No Substance use?: Yes Substance type: Methamphetamine Additional substance use comme: IV Substance frequency: Daily Alcohol Use?: Yes Alcohol Frequency: Once in a while Pt feels they are or have been: No Immunizations Up To Date Influenza Vaccine Up-to-Date: No; Not Current First/Initial COVID19 Vaccinat: SPRING 2020 Second COVID19 Vaccination Ministerio: SPRING 2020 COVID19 Vaccine [place]: GLOA Seasonal Allergies Seasonal Allergies: No Past Medical History Surgeries: Yes (ORAL SURGERY) Appendectomy, Eye Surgery Respiratory: No Cardiac: No Hypertension Neurological: Yes Stroke Reproductive Disorders: No Genitourinary: No Gastrointestinal: No Musculoskeletal: No Endocrine: No HEENT: No Cancer: No Psychosocial: Yes (polysubstance abuse) Anxiety, Suicide Attempts, Schizophrenia, Depression Integumentary: No Blood Disorders: No Physical Exam Vital Signs Vital Signs - First Documented 10/31/21 20:21 Pulse 103 Resp 22 B/P (MAP) 192/122 (145) Pulse Ox 98 O2 Delivery Room Air Capillary Refill : Less Than 3 Seconds General Appearance: WD/WN, no apparent distress Cardiovascular: regular rate, rhythm Respiratory: lungs clear, normal breath sounds, no respiratory distress, no accessory muscle use Extremities: normal range of motion, swelling (mild swelling medial left anticubital fossa, indurated about 2-3cm. no overlying wound/puncture. good ROM left elbow) Neurologic/Psychiatric: alert, normal mood/affect, oriented x 3 Skin: normal color, warm/dry, other (significant erythema of the volar left forearm and extending up the medial left upper arm. slightly tender to palpatio n. No abscess.) Progress/Results/Core Measures Results/Orders My Orders Orders - CAMILA SAL MD Sulfamethoxazole/Trimet Ds Tab (Bactrim (10/31/21 21:00) Cephalexin Capsule (Keflex Capsule) (10/31/21 20:48) Vital Signs/I&O 10/31/21 20:21 Pulse 103 Resp 22 B/P (MAP) 192/122 (145) Pulse Ox 98 O2 Delivery Room Air Blood Pressure Mean: 145 Departure Impression Primary Impression: Cellulitis of left upper extremity Disposition: 01 HOME, SELF-CARE Condition: Stable Departure-Patient Inst. Decision time for Depature: 20:54 Referrals: [facility] [place] ([place]P) Primary Care Physician NENA GRIMALDO (Family) Primary Care Physician Patient Instructions: Cellulitis (Skin Infection), Adult (DC) Add. Discharge Instructions: Drink lots of fluids to stay well-hydrated. Continue your daily prescribed medications as directed. I have sent to antibiotics to [facility] pharmacy for you. Keflex 500 mg 3 times a day for 7 days and Bactrim twice a day for 7 days. You should notice an improvement in your symptoms over the next 48 hours. Ibuprofen, 3 tablets which is 600 mg, every 6 hours with food as needed for pain. Warm moist compresses to the left arm will also help with swelling and discomfort. If you develop high fever, shaking chills worsening redness or pain please come back to the emergency room for reevaluation. [facility] - [address] [address] Scripts Sulfamethoxazole/Trimethoprim (Bactrim Ds Tablet) 1 Each Tablet 1 EACH PO BID, #13 TAB Prov: CAMILA SAL MD 10/31/21 Cephalexin (Cephalexin) 500 Mg Tablet 500 MG PO TID, #20 TAB Prov: CAMILA SAL MD 10/31/21 CAMILA SAL MD Oct 31, 2021 20:57
[2021-10-31] MEDS ORDERED: SULF1TAB38 PO (20:58)
[2021-10-31] MEDS ORDERED: CEPH500T PO (20:58)
[2021-10-31] MEDS ORDERED: TRIM/SULFAMETH 160/800 (SEPTRA DS) TAB PO ONE (21:00)
[2021-10-31 21:09] VITALS: BP 151/98
== END 2021-10-31 21:09 | disposition home or self-care (01) ==
LOC: EDUNIT# 20:10 → ER 20:12
DX: L03.114 Cellulitis of left upper limb (principal); I10 Essential (primary) hypertension; F41.9 Anxiety disorder, unspecified; F20.9 Schizophrenia, unspecified; F17.210 Nicotine dependence, cigarettes, uncomplicated; Z86.73 Personal history of transient ischemic attack (TIA), and cerebral infarction without residual deficits; Z79.899 Other long term (current) drug therapy
CPT/HCPCS: 99283

== ENCOUNTER 2021-11-18 17:25 | Emergency (ER) | payer SELFPAY ==
[~2021-11-18] VITALS: Ht 187 cm; Wt 122.0 kg
[~2021-11-18 17:25] MED LIST changes: +CEPH500T PO; +SULF1TAB38 PO
[2021-11-18 18:15] VITALS: BP 194/144
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
[2021-11-18 18:42] LABS: BASOPHILS % (AUTO) 0 % (0-10); EOSINOPHILS % (AUTO) 0 % (0-10); HEMATOCRIT 44 % (40-54); HEMOGLOBIN 14.5 g/dL (13.3-17.7); LYMPHOCYTES # (AUTO) 1.8 10^3/uL (1.0-4.0); LYMPHOCYTES % (AUTO) 17 % (12-44); MEAN CORPUSCULAR HEMOGLOBIN 29 pg (25-34); MEAN CORPUSCULAR HGB CONC 33 g/dL (32-36); MEAN CORPUSCULAR VOLUME 87 fL (80-99); MEAN PLATELET VOLUME 11.1 fL (9.0-12.2); MONOCYTES # (AUTO) 1.2 10^3/uL (0.0-1.0); MONOCYTES % (AUTO) 11 % (0-12); NEUTROPHILS % (AUTO) 72 % (42-75); PLATELET COUNT 226 10^3/uL (130-400); WHITE BLOOD COUNT 11.1 10^3/uL (4.3-11.0)
[2021-11-18 18:45] LABS: BILIRUBIN,URINE NEGATIVE (NEGATIVE); CLARITY,URINE CLEAR; COLOR,URINE YELLOW; GLUCOSE, URINE (UA) NEGATIVE (NEGATIVE); KETONES,URINE NEGATIVE (NEGATIVE); LEUKOCYTE ESTERASE ,URINE NEGATIVE (NEGATIVE); NITRITE,URINE NEGATIVE (NEGATIVE); PROTEIN,URINE TRACE (NEGATIVE)
[2021-11-18 18:54] LABS: ALBUMIN 4.7 GM/DL (3.2-4.5); CHLORIDE 105 MMOL/L (98-107); POTASSIUM 3.2 MMOL/L (3.6-5.0); SODIUM 141 MMOL/L (135-145)
[2021-11-18 18:54] LABS: BACTERIA,URINE NEGATIVE /HPF; RBC,URINE 0-2 /HPF; SQUAMOUS EPITHELIAL CELL,UR 0-2 /HPF; WBC,URINE 0-2 /HPF
[2021-11-18 18:55] LABS: CALCIUM 9.5 MG/DL (8.5-10.1)
[2021-11-18 18:56] LABS: AMPHETAMINE SCREEN, URINE POSITIVE (NEGATIVE); BENZODIAZEPINES SCREEN URINE NEGATIVE (NEGATIVE); CANNABINOID SCREEN, URINE POSITIVE (NEGATIVE); COCAINE SCREEN URINE NEGATIVE (NEGATIVE); METHAMPHETAMINE SCREEN URINE S POSITIVE (NEGATIVE)
[2021-11-18 18:57] LABS: BARBITURATE SCREEN URINE NEGATIVE (NEGATIVE); METHADONE STAT NEGATIVE (NEGATIVE); OPIATE SCREEN URINE NEGATIVE (NEGATIVE); OXYCODONE STAT NEGATIVE (NEGATIVE); PROPOXYPHENE STAT NEGATIVE (NEGATIVE); TRICYCLIC ANTIDEPRESSANTS SCRE NEGATIVE (NEGATIVE)
[2021-11-18 18:57] LABS: GLUCOSE 106 MG/DL (70-105)
[2021-11-18 18:58] LABS: BILIRUBIN,TOTAL 0.8 MG/DL (0.1-1.0); CARBON DIOXIDE 21 MMOL/L (21-32)
[2021-11-18 19:00] LABS: ALKALINE PHOSPHATASE 74 U/L (40-136); CREATININE SERUM 0.99 MG/DL (0.60-1.30); GFR ESTIMATED 83
[2021-11-18 19:02] LABS: BUN/CREATININE RATIO 12
[2021-11-18 19:03] LABS: ALANINE AMINOTRANSFERASE 40 U/L (0-55); SALICYLATE < 5.0 MG/DL (5.0-20.0)
[2021-11-18 19:04] LABS: ACETAMINOPHEN < 10 UG/ML (10-30)
[2021-11-18 19:23] LABS: TSH (THYROID ANALYZER) 2.29 UIU/ML (0.35-4.94)
[2021-11-18] MEDS ORDERED: KCL 10 MEQ TAB (MICRO K) PO ONE (20:15)
[2021-11-18] MEDS ORDERED: OSELTAMIVIR 75 MG (TAMIFLU) CAPSULE PO ONE (20:15)
[2021-11-18] MEDS ORDERED: lisINopril 10 MG (PRINIVIL) TABLET PO ONE (20:15)
[2021-11-18] MEDS ORDERED: cloNIDine 0.1 MG (CATAPRES) TAB PO ONE (20:15)
== END 2021-11-18 21:42 | disposition left against medical advice (07) ==
LOC: EDUNIT# 17:25 → ER 17:27
DX: R45.851 Suicidal ideations (principal); F32.9 Major depressive disorder, single episode, unspecified; F19.90 Other psychoactive substance use, unspecified, uncomplicated; I10 Essential (primary) hypertension; J10.1 Influenza due to other identified influenza virus with other respiratory manifestations; R00.0 Tachycardia, unspecified; E66.9 Obesity, unspecified; F41.9 Anxiety disorder, unspecified; F20.9 Schizophrenia, unspecified; F17.210 Nicotine dependence, cigarettes, uncomplicated; Z68.33 Body mass index [BMI] 33.0-33.9, adult; Z20.822 Contact with and (suspected) exposure to COVID-19; Z86.73 Personal history of transient ischemic attack (TIA), and cerebral infarction without residual deficits; Z79.899 Other long term (current) drug therapy
CPT/HCPCS: 80053; 80306; 81000; 84443; 85025; 87636; 93005; 99283; G0480 ×3; 36415; 80320; 80329

== ENCOUNTER 2021-11-18 21:56 | Emergency (ER) | payer SELFPAY | END 2021-11-18 22:07 | disposition left against medical advice (07) | LOC: EDUNIT# 21:56 → ER 21:57 | DX: R45.851 Suicidal ideations (principal) ==